=== PATIENT | male | born 1975 | race Caucasian/White ===

== ENCOUNTER 2018-01-18 06:19 | Emergency (ER) | payer SELFPAY ==
[~2018-01-18] VITALS: Ht 175.3 cm; Wt 82.0 kg
[~2018-01-18 06:19] MED LIST: KEPP500 PO
[2018-01-18] MEDS ORDERED: SODIUM CHLORIDE 0.9% 1,000 ML IV ONE (06:37)
[2018-01-18] MEDS ORDERED: LEVETIRACETAM 1000MG/100ML 100 ML IV ONE (06:45)
[2018-01-18 07:29] LABS: BASOPHILS % 0.2 % (0.0-2.0); EOSINOPHILS % 0.3 % (0.0-5.0); HEMATOCRIT. 36.8 % (42.0-52.0); HEMOGLOBIN. 12.1 g/dL (14.0-18.0); LYMPHOCYTES % 11.4 % (20.0-50.0); MEAN CORPUSCULAR HEMOGLOBIN 26.8 pg (28.0-32.0); MEAN CORPUSCULAR VOLUME 81.3 fL (80.0-94.0); MEAN PLATELET VOLUME 10.5 fl (7.4-10.4); MONOCYTES % 11.5 % (2.0-8.0); NEUTROPHILS % 76.6 % (40.0-76.0); PLATELET 106 x1000/uL (130-400); RED BLOOD CELL COUNT 4.52 mill/uL (4.7-6.1); RED CELL DISTRIBUTION WIDTH 18.2 % (11.6-14.6)
[2018-01-18 07:33] LABS: CHLORIDE 110 mEq/L (98-107)
[2018-01-18 07:42] LABS: ETHANOL BLOOD < 10 mg/dL
[2018-01-18 08:29] VITALS: BP 122/83
== END 2018-01-18 08:29 | disposition home or self-care (01) ==
LOC: ER 06:31
DX: R56.9 Unspecified convulsions (principal); J06.9 Acute upper respiratory infection, unspecified; E87.6 Hypokalemia; E88.09 Other disorders of plasma-protein metabolism, not elsewhere classified; R74.8 Abnormal levels of other serum enzymes; R73.9 Hyperglycemia, unspecified; E87.2 Acidosis; D64.9 Anemia, unspecified; R00.0 Tachycardia, unspecified; F17.200 Nicotine dependence, unspecified, uncomplicated; Z88.0 Allergy status to penicillin; Z90.49 Acquired absence of other specified parts of digestive tract
CPT/HCPCS: 36415; 80053; 85025; 93005; 96365; 99285; G0482; J1953; J7030; J7040

== ENCOUNTER 2018-06-17 07:18 | Emergency (ER) | payer SELFPAY ==
[~2018-06-17] VITALS: Ht 182.9 cm; Wt 105.0 kg
[2018-06-17] MEDS ORDERED: SODIUM CHLORIDE 0.9% 1,000 ML IV ONE (07:31)
[2018-06-17] MEDS ORDERED: LEVETIRACETAM 1000MG/100ML 100 ML IV ONE (07:45)
[2018-06-17 08:20] LABS: BASOPHILS % 0.5 % (0.0-2.0); EOSINOPHILS % 2.1 % (0.0-5.0); HEMATOCRIT. 42.6 % (42.0-52.0); MEAN CORPUSCULAR HEMOGLOBIN 31.4 pg (28.0-32.0); MEAN CORPUSCULAR VOLUME 95.2 fL (80.0-94.0); MEAN PLATELET VOLUME 10.8 fl (7.4-10.4); MONOCYTES % 12.5 % (2.0-8.0); NEUTROPHILS % 44.9 % (40.0-76.0); PLATELET 85 x1000/uL (130-400); RED BLOOD CELL COUNT 4.47 mill/uL (4.7-6.1)
[2018-06-17 08:24] LABS: CHLORIDE 105 mEq/L (98-107)
[2018-06-17 08:29] LABS: ETHANOL BLOOD < 10 mg/dL
[2018-06-17 12:50] LABS: *AMPHETAMINES SCREEN URINE NEGATIVE (NEGATIVE); *BARBITURATES SCREEN URINE NEGATIVE (NEGATIVE); *BENZODIAZEPINES SCREEN URINE PRESUMTIVE POSITIVE (NEGATIVE); *COCAINE SCREEN URINE NEGATIVE (NEGATIVE)
[2018-06-17 12:51] LABS: CANNABINOID URINE SCREEN PRESUMTIVE POSITIVE (NEGATIVE); METHADONE URINE SCREEN NEGATIVE (NEGATIVE); OPIATES URINE SCREEN PRESUMTIVE POSITIVE (NEGATIVE); PHENCYCLIDINE URINE SCREEN NEGATIVE (NEGATIVE)
[2018-06-17] MEDS ORDERED: POTASSIUM CHLORIDE 20MEQ TABLET SR PO ONE (13:00)
[2018-06-17 14:02] VITALS: BP 109/75
== END 2018-06-17 14:16 | disposition home or self-care (01) ==
LOC: ER 07:52
DX: G40.909 Epilepsy, unspecified, not intractable, without status epilepticus (principal); E87.6 Hypokalemia; E87.2 Acidosis; R03.0 Elevated blood-pressure reading, without diagnosis of hypertension; Z88.0 Allergy status to penicillin; Z86.19 Personal history of other infectious and parasitic diseases
CPT/HCPCS: 36415; 70450; 80048; 80305; 85025; 96365; 99285; G0482; J1953; J7030

== ENCOUNTER 2019-09-20 07:22 | Emergency (ER) | payer SELFPAY ==
[~2019-09-20] VITALS: Ht 167.6 cm; Wt 73.0 kg
[2019-09-20 09:30] VITALS: BP 107/74
== END 2019-09-20 09:30 | disposition home or self-care (01) ==
LOC: ER 07:22
DX: G40.909 Epilepsy, unspecified, not intractable, without status epilepticus (principal); F17.210 Nicotine dependence, cigarettes, uncomplicated; Z71.6 Tobacco abuse counseling; Z88.0 Allergy status to penicillin
CPT/HCPCS: 99283; 99406

== ENCOUNTER 2019-11-05 09:46 | Emergency (ER) | payer SELFPAY ==
[~2019-11-05] VITALS: Ht 170.2 cm; Wt 70.3 kg
[2019-11-05] MEDS ORDERED: MORPHINE SULFATE 4 MG/ML CPJ (NOT FOR IM USE) IV ONE ×2 (10:15→14:30)
[2019-11-05 10:24] LABS: BASOPHILS % 0.5 % (0.0-2.0); EOSINOPHILS % 0.4 % (0.0-5.0); HEMATOCRIT. 39.9 % (42.0-52.0); HEMOGLOBIN. 13.6 g/dL (14.0-18.0); LYMPHOCYTES % 19.2 % (20.0-50.0); MEAN CORPUSCULAR HEMOGLOBIN 31.8 pg (28.0-32.0); MEAN CORPUSCULAR VOLUME 93.2 fL (80.0-94.0); MEAN PLATELET VOLUME 10.8 fl (7.4-10.4); MONOCYTES % 12.8 % (2.0-8.0); NEUTROPHILS % 67.1 % (40.0-76.0); PLATELET 77 x1000/uL (130-400); RED BLOOD CELL COUNT 4.28 mill/uL (4.7-6.1); RED CELL DISTRIBUTION WIDTH 13.3 % (11.6-14.6)
[2019-11-05 10:30] LABS: CHLORIDE 109 mEq/L (98-107)
[2019-11-05 10:33] LABS: INR 1.1
[2019-11-05] MEDS ORDERED: ONDANSETRON HCL 4MG/2ML INJ IV STA (20:49)
[2019-11-05] MEDS ORDERED: MORPHINE SULFATE 4 MG/ML CPJ (NOT FOR IM USE) IV STA (20:49)
[2019-11-05 22:00] VITALS: BP 108/54
== END 2019-11-05 22:51 | disposition short-term general hospital (02) ==
LOC: ER 09:46
DX: S72.001A Fracture of unspecified part of neck of right femur, initial encounter for closed fracture (principal); G40.909 Epilepsy, unspecified, not intractable, without status epilepticus; D67 Hereditary factor IX deficiency; Z88.0 Allergy status to penicillin; W01.0XXA Fall on same level from slipping, tripping and stumbling without subsequent striking against object, initial encounter; Y93.89 Activity, other specified; Y92.010 Kitchen of single-family (private) house as the place of occurrence of the external cause
CPT/HCPCS: 36415; 73502; 80053; 85025; 85610; 96374; 96375; 96376; 99285; J2270; J2405